=== PATIENT | male | born 1950 | race Caucasian/White ===

== ENCOUNTER → 2021-04-02 | Emergency (ER) | payer OTHER ==
--- OUTSIDE RECORDS SUMMARY | 2021-04-02 23:02 | XMS REPORT | Continuity of Care Document ---
:1950 Author Organization [facility] t Address [address] [place] [address] [address] [place] [address] Care Team Providers Name Role Phone Lindsey STOLL Primary Care Physician RachVadim Bone Attending Clinician Problems This patient has no known problems. Allergies, Adverse Reactions, Alerts This patient has no known allergies or adverse reactions. Social History Social Habit Start Date Stop Date Quantity Comments Source Sex Ass[birth year] At [birth year] Manpreet Cordero ethodist 00:00:00 00:00:00 Medications This patient has no known medications. Procedures This patient has no known procedures. Plan of Care Planned Activity Planned Date Details Comments Source Future Scheduled 2024-07-22 COLONOSCOPY SCREENING joslyn [facility] 00:00:00 [code = COLONOSCOPY SCREENING] Future Scheduled 2021-04-18 INFLUENZA VACCINE [place] em[facility] 00:00:00 [code = INFLUENZA VACCINE] Future Scheduled 2016 65+ PNEUMOCOCCAL Lindsay [facility] 00:00:00 VACCINE (1 of 1 - PPSV23) [code = 65+ PNEUMOCOCCAL VACCINE (1 of 1 - PPSV23)] Future Scheduled 2001 SHINGLES VACCINES (#1) H calvin [facility] 00:00:00 [code = SHINGLES VACCINES (#1)] Future Scheduled 1969 Hepatitis C screening Ho joslyn [facility] 00:00:00 (procedure) [code = 377874797] Future Scheduled 1963 COVID-19 VACCINE (1) Ting [place] [facility] 00:00:00 [code = COVID-19 VACCINE (1)] Encounters Start End Encounter Admission Attending Care Care Encounter Source Date/Time Date/Time Type Type Clinicians Facility Department ID 2021-03-21 2021-03-21 [facility] [id number] 78 12:41:10 13:01:10 [facility] [id number] [place] [id number] [place] [id number] [facility] [address] Results This patient has no known results.
--- NOTE | 2021-04-02 23:21 | ER ---
Nurse's Notes [facility] Name: Margarito Perez Age: 70 yrs Sex: Male : 1950 Arrival Date: 04/02/2021 Time: 23:01 Bed Waiting Private MD: Diagnosis: Presentation: 04/02 23:21 Note registration stated pt did not want to wait. bb ED Course: 23:01 Patient arrived in ED. 23:21 Patient's name was called from ER lobby. No response. Unable to locate patient. Will bb disposition as left without being seen by a provider. Administered Medications: No medications were administered Outcome: 23:21 Patient left the ED. bb Signatures: Jolly Gonzalez RN RN bb Ines Newton
== END ==
LOC: ER 22:58
DX: R69 Illness, unspecified (principal); Z53.21 Procedure and treatment not carried out due to patient leaving prior to being seen by health care provider

== ENCOUNTER 2021-05-11 09:20 | Day surgery (SDC) | payer OTHER ==
[2021-05-06 11:13] LABS: Absolute Lymphocytes (CBC) 1.2 K/uL (0.7-4.9); Basophils % 0.4 % (0-1.3); Hematocrit 46.4 % (39.6-49.0); Lymphocytes % 20.7 % (15.3-44.8); RBC Red Blood Cell Count 5.21 M/uL (4.33-5.43)
--- NOTE | 2021-05-06 11:14 | RAD REPORT ---
EXAM DESCRIPTION: Yadira Bernal And Lisandra (2 Views)05/06/2021 11:01 am CLINICAL HISTORY: Preop COMPARISON: None FINDINGS: A portion of colon abuts and elevates the left hemidiaphragm. The lungs appear clear of acute infiltrate. The heart is normal size
[2021-05-06 11:22] LABS: Protime INR 0.97
[2021-05-06 11:30] LABS: Potassium 4.5 mmol/L (3.5-5.1)
[~2021-05-11 09:20] MED LIST: AMPICILLIN SODIUM 2 GM in NA CHLORIDE 0.9% 100 ML IVPB SCH; Gentamicin Inj 240 MG in NA CHLORIDE 0.9% 100 ML IV SCH
[2021-05-11] MEDS ORDERED: Ringers Lactate 1,000 ML IV ONE (09:51)
[2021-05-11] MEDS ORDERED: propofoL 200 MG/20 ML VIAL IV ONE (11:44)
[2021-05-11] MEDS ORDERED: FENTANYL CITR 100 MCG/2 ML ONE ×2 (11:44→12:19)
[2021-05-11] MEDS ORDERED: LIDOCAINE 1% MPF 5 ML VIAL ONE (11:44)
[2021-05-11] MEDS ORDERED: Mastisol Adhesive Liq ONE (12:41)
[2021-05-11] MEDS ORDERED: KETOROLAC 30 MG/ML INJ ONE (12:50)
[2021-05-11] MEDS ORDERED: ONDANSETRON 4 MG/2 ML VIAL ONE (12:51)
[2021-05-11] MEDS ORDERED: CODEINE 30MG/APAP 300MG TAB PO PRN (12:54)
[2021-05-11] MEDS ORDERED: PHENAZOPYRIDINE 100MG TAB PO ONE ×2 (12:54→13:54)
[2021-05-11 12:55] VITALS: O2SAT 100
[2021-05-11 13:11] VITALS: BP 155/90; TEMP 97.2
--- NOTE | 2021-05-11 13:16 | RAD REPORT ---
EXAM DESCRIPTION: RAD - Urethrocystogrphy Retrograde - 05/11/2021 12:32 pm CLINICAL HISTORY: CYSTO LEFT SIDE COMPARISON: Chest Pa And Lat (2 Views) dated 05/06/2021 FINDINGS: Twenty-six fluoroscopic images were submitted. The initial images show cannulation of the left ureter and contrast opacification. No ureteral filling defects are identified. There are likely some left renal calculi noted. Subsequent images demonstrate guidewire placement and stent placement. Fluoro time: 24 seconds, dose 13.0 pb Amanuel IMPRESSION: Fluoroscopic guided placement of a left ureteral stent.
--- NOTE | 2021-05-11 13:28 | OP ---
Date of Procedure: 05/11/2021 Surgeon: NAHOMY GONZALEZ Preoperative Diagnosis: Left nephroureterolithiasis. Postoperative Diagnosis: No stone seen. Principle Procedures: 1.Cystoscopy. 2.Left retrograde pyelography. 3.Left ureteroscopy with pyeloscopy. 4.Left ureteral stent placement. Indication For Procedure: Mr. Perez is a 70-year-old gentleman, who [facility] with a CT scan performed with IV contrast on April 03, 2021 at [facility] that revealed the pre sence of a 0.4 cm infrarenal calculus and a 0.5 cm left ureterovesical junction calculus. He has not had any pain for a while, but he has been straining his urine noting he specifically collected in a jar and looks for any stones, and he noted no stones. As a result, he presents today for definitive evaluation. Procedure In Detail: The patient was consented in the preoperative holding area before being transfe rred to the operative suite where general anesthesia was induced. He was given ampicillin 2 g and ge ntamicin 240 mg IV antimicrobial prophylaxis. Pneumo boots were provided for DVT prophylaxis. He wa s placed in the lithotomy position, padded and secured to the table appropriately. His genitalia wer e prepped using Hibiclens and draped in standard fashion. The case was then begun using a 22-Samoan rigid cystoscope to traverse the urethra and into the bladder with ease. The bladder was surveyed in its entirety, and there were no mucosal lesions, foreign bodies, or stones noted throughout. The ur eteral orifices were orthotopic in location and there was avid efflux of urine from each. As a resul t, I cannulated the left ureteral orifice using the tip of a 5-Samoan ureteral access catheter and pe rformed retrograde pyelogram. Left retrograde pyelography: Using a 70:30 mixture of Omnipaque and saline, contrast was injected via the lumen of the 5-Samoan ur eteral access catheter and did propagate with ease into a nondilated collecting system with sharp tasha ices and only mild area of ureteral irregularity in the mid distal ureter. As a result, to investiga te for the potential for only partially obstructing stone, I then passed a Sensor wire into the colle cting system with ease via the 5-Samoan ureteral access catheter. I removed the 5-Samoan ureteral ac cess catheter and passed over the Sensor wire a dual-lumen catheter. Contrast was injected via the s econd lumen to confirm the entry ureteral location of the wire and catheter. I then placed a Bentson guidewire into the collecting system with coils observed fluoroscopically in the upper pole. I then removed the dual-lumen catheter and placed a ureteral access sheath after attempting to pass the fle xible ureteroscope with difficulty gaining access into the ureteral orifice. Then via the ureteral a ccess sheath, I was able to navigate the scope all the way into the upper pole of the kidney. I then surveyed each of the calices of the kidney carefully using a retrograde injection of contrast confir med that all calices were indeed seen and fluoroscopic guidance. Once all the calices had been surve yed, and no stones or even Adithya plaques of any significance were noted, I then surveyed the renal pelvis down into the proximal and mid and distal ureter with no stones seen on the way out. The uret eral access sheath was removed as the ureteroscope was retracted, and again no stones were seen. As a result, the ureteroscopy was discontinued, and I back-loaded the cystoscope over the indwelling saf ety wire. I then passed a 6-Samoan by 26 cm double-J ureteral stent, left tethered to its string int o his collecting system with a coil observed fluoroscopically in the pelvis region of the kidney and one cystoscopically formed in the bladder. Mastisol and Steri-Strips were used to secure the string to the head of the penis, and his bladder was decompressed. He was then taken out of the lithotomy p osition, awakened from general anesthesia, transferred to a stretcher, and then transferred to the re covery room in good condition. Complications: None. Discharge Disposition: He should follow up in the Urology Clinic with nurse practitioner, Tristian mcghee the next 2-3 days to have the ureteral stent removed on it string. He may be given a prophylac tic dose of antimicrobial at that time, and determination for metabolic profile assessment should be made if he is a recurrent stone former. If not, he should be counseled to increase the volume of liv er that he drinks such that he voids 2 L of urine a day, which he can assess by ensuring he is voidin g with a full bladder every 3, no more than 4 hours during the day. If he does not need to urinate a t least every 3-4 hours during the day, he needs to significantly increase his drinking. SWATI/NICOLETTE Voice ID: [id number] Report ID: [id number]
[2021-05-11] MEDS ORDERED: CODEINE 30MG/APAP 300MG TAB ONE (13:50)
== END 2021-05-11 14:00 | disposition home or self-care (01) ==
LOC: OR 09:20
PROVIDERS: ATTEND Urology
PROC: 0T778DZ Dilation of Left Ureter with Intraluminal Device, Via Natural or Artificial Opening Endoscopic (ICD-10-PCS; principal; 2021-05-11 10:30)
DX: N20.2 Calculus of kidney with calculus of ureter (principal); Z20.822 Contact with and (suspected) exposure to COVID-19
CPT/HCPCS: 93005; 85025; 87086; 80048; 36415; 85610; 71046; 74450; 51610; 52332; 52351; U0002; J2704; J1580; J3010; J7120; J2405; J0290; 87088